=== PATIENT | female | born 1970 | race Caucasian/White ===

== ENCOUNTER 2018-10-16 08:34 | Outpatient (CLI) | payer MEDICARE | END 2018-10-16 23:59 | disposition home or self-care (01) | LOC: STAR 08:34 | PROVIDERS: ATTEND Orthopaedic Surgery | DX: Z01.818 Encounter for other preprocedural examination (principal); M19.012 Primary osteoarthritis, left shoulder | CPT/HCPCS: 36415; 80053 ==

== ENCOUNTER 2018-10-21 05:15 | Inpatient (IN) | payer MEDICARE ==
[~2018-10-21] VITALS: Ht 160 cm; Wt 104.5 kg
[~2018-10-21 05:15] MED LIST: ASPI-691 PO; ATOR10TA PO; DICL50TA2 PO; GABA-826 PO; IBUP200T64 PO; LOSA1TAB25 PO; OMEP20TA62 PO
[2018-10-21] MEDS ORDERED: LACTATED RINGERS 1,000 ML IV SCH (06:00)
[2018-10-21] MEDS ORDERED: MULT-658 PO (06:03)
[2018-10-21] MEDS ORDERED: MIDAZOLAM 1 MG/ML, 2ML ONE (06:12)
[2018-10-21] MEDS ORDERED: FENTANYL PF 250 MCG/5ML ONE (06:12)
[2018-10-21 06:18] VITALS: BP 165/104
[2018-10-21] MEDS ORDERED: BUPIVACAINE LIPOSOME/PF 10ML INFIL ONE ×2 (06:22→07:09)
[2018-10-21] MEDS ORDERED: GABAPENTIN 300 MG CAPSULE PO ONE (06:30)
[2018-10-21] MEDS ORDERED: BUPIVACAINE/PF 0.5% ONE (06:30)
[2018-10-21] MEDS ORDERED: ROPIvacaine/PF 0.5%, 30 ML ONE (06:30)
[2018-10-21] MEDS ORDERED: CLINDAMYCIN 150 MG/ML, 6ML ONE (06:30)
[2018-10-21] MEDS ORDERED: ACETAMINOPHEN 500 MG TABLET PO ONE (06:30)
[2018-10-21] MEDS ORDERED: ACETAMINOPHEN 500 MG TABLET ONE (06:33)
[2018-10-21] MEDS ORDERED: GABAPENTIN 300 MG CAPSULE ONE (06:34)
[2018-10-21] MEDS ORDERED: D5%-0.45% NACL 1,000 ML IV SCH (06:50)
[2018-10-21] MEDS ORDERED: DEXAMETHASONE 4 MG/ML, 1ML ONE (07:00)
[2018-10-21] MEDS ORDERED: ONDANSETRON 2MG/ML, 2ML IV PRN (07:00)
[2018-10-21] MEDS ORDERED: ROCURONIUM 10 MG/ML,10ML ONE (07:00)
[2018-10-21] MEDS ORDERED: morphine SULFATE 10 MG/ML, 1ML IV PRN (07:00)
[2018-10-21] MEDS: KETOROLAC 30 MG/1 ML IV SCH ×2 (07:00→15:34)
[2018-10-21] MEDS ORDERED: BISACODYL 10 MG SUPP PR PRN (07:00)
[2018-10-21] MEDS ORDERED: ACETAMINOPHEN 325 MG TABLET PO PRN (07:00)
[2018-10-21] MEDS ORDERED: MAGNESIUM HYDROXIDE 8%, 30ML UDC PO PRN (07:00)
[2018-10-21] MEDS ORDERED: SENNA/DOCUSATE TABLET PO PRN (07:00)
[2018-10-21] MEDS ORDERED: ASA/APAP/ CAFFEINE TABLET PO PRN (07:00)
[2018-10-21] MEDS ORDERED: SUCCINYLCHOLINE 20 MG/ML, 10ML ONE (07:00)
[2018-10-21] MEDS ORDERED: CEFAZOLIN 1,000 MG ONE (07:00)
[2018-10-21] MEDS ORDERED: ONDANSETRON 2MG/ML, 2ML ONE (07:00)
[2018-10-21] MEDS: OXYcodone/APAP 5/325MG TABLET PO SCH ×3 (07:00→15:00)
[2018-10-21] MEDS ORDERED: PROPOFOL 10 MG/ML, 20ML ONE (07:00)
[2018-10-21] MEDS ORDERED: PROMETHAZINE 25 MG/ML, 1ML IM PRN (07:00)
[2018-10-21] MEDS ORDERED: FENTANYL PF 100 MCG/2ML IV PRN (08:30)
[2018-10-21] MEDS ORDERED: HYDROmorphone 1 MG/ML, 1ML INJ IV PRN (08:30)
[2018-10-21] MEDS ORDERED: MEPERIDINE/PF 25MG/0.5ML IVPush PRN (08:30)
[2018-10-21] MEDS ORDERED: ALBUTEROL SULFATE 2.5 MG/3 ML NPPB PRN (08:30)
[2018-10-21] MEDS ORDERED: OXYcodone 5 MG/5 ML ORAL.SOL UDC PO PRN (08:30)
[2018-10-21] MEDS ORDERED: ONDANSETRON 2MG/ML, 2ML IVPush PRN (08:30)
[2018-10-21] MEDS ORDERED: PROMETHAZINE 25 MG/ML, 1ML IV PRN (08:30)
[2018-10-21] MEDS ORDERED: KETOROLAC 30 MG/1 ML IV PRN (08:30)
[2018-10-21] MEDS ORDERED: hydrALAzine 20 MG/ML, 1ML IV PRN (08:30)
[2018-10-21] MEDS ORDERED: LABETALOL 5MG/ML, 20ML IV PRN (08:30)
[2018-10-21] MEDS ORDERED: METOCLOPRAMIDE 5 MG/ML, 2ML IV PRN (08:30)
[2018-10-21] MEDS ORDERED: DOCUSATE 100 MG CAPSULE PO SCH (09:00)
[2018-10-21] MEDS ORDERED: HYDROCHLOROTHIAZIDE 12.5 MG CAPSULE PO SCH (09:00)
[2018-10-21] MEDS: GABAPENTIN 100 MG CAPSULE PO SCH ×2 (09:00→10:57)
[2018-10-21] MEDS ORDERED: LOSARTAN 50MG TABLET PO SCH (09:00)
[2018-10-21] MEDS ORDERED: OXYcodone 5 MG/5 ML ORAL.SOL UDC ONE ×2 (09:12→09:13)
[2018-10-21] MEDS ORDERED: LABETALOL 5 MG/ML SYR. (IV ONLY) IV PRN (10:00)
[2018-10-21 10:30] VITALS: BP 140/94
[2018-10-21] MEDS ORDERED: OMEPRAZOLE 20 MG CAPSULE.DR PO SCH (10:30)
[2018-10-21] MEDS ORDERED: CEFAZOLIN PMX 2GM/50ML 50 ML IVPB SCH (11:00)
[2018-10-21 13:56] VITALS: BP 122/87
[2018-10-21 17:50] VITALS: BP 144/68
[2018-10-21] MEDS ORDERED: ATORVASTATIN 10 MG TABLET PO SCH (21:00)
== END 2018-10-21 18:10 | disposition home or self-care (01) | DRG 483 ==
LOC: ORIP 05:15 → 4NOR 10:27
PROVIDERS: ADMIT Orthopaedic Surgery; ATTEND Orthopaedic Surgery
PROC: 3E0T3BZ Introduction of Anesthetic Agent into Peripheral Nerves and Plexi, Percutaneous Approach (ICD-10-PCS; 2018-10-21)
PROC: 0RRK00Z Replacement of Left Shoulder Joint with Reverse Ball and Socket Synthetic Substitute, Open Approach (ICD-10-PCS; principal; 2018-10-21 07:00)
DX: M19.012 Primary osteoarthritis, left shoulder (principal); Q89.8 Other specified congenital malformations; M75.20 Bicipital tendinitis, unspecified shoulder; K21.9 Gastro-esophageal reflux disease without esophagitis; M65.9 Synovitis and tenosynovitis, unspecified; Z90.710 Acquired absence of both cervix and uterus; Z90.49 Acquired absence of other specified parts of digestive tract
CPT/HCPCS: C1713; C1776; G0378; J0690; J1100; J1885; J2250; J2405; J2704; J2795; J3010; C1769; J0330; J7120

== ENCOUNTER → 2020-08-10 | Outpatient (CLI) | payer MEDICARE ==
[~2020-08-10] MED LIST changes: +MULT-658 PO
[2020-08-10 10:27] LABS: ALBUMIN 3.8 g/dL (3.4-5.0); ANION GAP 7 mmol/L (5-15); CALCIUM 10.5 mg/dL (8.5-10.1); CHLORIDE 103 mmol/L (98-107)
[2020-08-10 10:31] LABS: ALANINE AMINOTRANSFERASE 27 U/L (12-78); ALKALINE PHOSPHATASE 152 U/L (45-117); BILIRUBIN,TOTAL 0.6 mg/dL (0.2-1.0); TOTAL PROTEIN 8.5 g/dL (6.4-8.2)
== END | disposition home or self-care (01) ==
LOC: STAR 08:35
PROVIDERS: ATTEND Orthopaedic Surgery
DX: Z01.812 Encounter for preprocedural laboratory examination (principal); M19.011 Primary osteoarthritis, right shoulder; M25.511 Pain in right shoulder; Z20.822 Contact with and (suspected) exposure to COVID-19
CPT/HCPCS: 36415; 80053; 87081; U0003; U0005

== ENCOUNTER 2020-08-16 08:43 | Observation (INO) | payer MEDICARE ==
[~2020-08-16] VITALS: Ht 160 cm; Wt 106.0 kg
[~2020-08-16 08:43] MED LIST changes: +BUPIVACAINE LIPOSOME/PF 10ML INFIL ONE; +CLINDAMYCIN 150 MG/ML, 6ML ONE
[2020-08-16] MEDS ORDERED: CHLORHEXIDINE 15 ML UDC ONE (09:51)
[2020-08-16] MEDS ORDERED: CHLORHEXIDINE 15 ML UDC PO ONE (10:00)
[2020-08-16] MEDS ORDERED: LACTATED RINGERS 1,000 ML IV SCH (10:00)
[2020-08-16] MEDS ORDERED: FENTANYL PF 250 MCG/5ML ONE (10:06)
[2020-08-16] MEDS ORDERED: MIDAZOLAM 1 MG/ML, 2ML ONE (10:06)
[2020-08-16] MEDS ORDERED: hydrALAzine 20 MG/ML, 1ML ONE (10:18)
[2020-08-16] MEDS ORDERED: hydrALAzine 20 MG/ML, 1ML IV ONE (10:30)
[2020-08-16] MEDS ORDERED: ACETAMINOPHEN 325 MG TABLET PO PRN (12:30)
[2020-08-16] MEDS ORDERED: PROMETHAZINE 25 MG/ML, 1ML IVPush PRN (12:30)
[2020-08-16] MEDS ORDERED: ONDANSETRON 2MG/ML, 2ML IVPush PRN ×2 (12:30→19:30)
[2020-08-16] MEDS ORDERED: METHOCARBAMOL 1,000 MG in DEXTROSE 5% 100 ML IV PRN (12:30)
[2020-08-16] MEDS ORDERED: EPHEDRINE 50 MG/ML, 1ML IVPush PRN (12:30)
[2020-08-16] MEDS ORDERED: LORazepam 2 MG/ML, 1ML IVPush PRN (12:30)
[2020-08-16] MEDS ORDERED: hydrALAzine 20 MG/ML, 1ML IV PRN (12:30)
[2020-08-16] MEDS ORDERED: HYDROmorphone 1 MG/ML, 1ML INJ IVPush PRN (12:30)
[2020-08-16] MEDS ORDERED: LABETALOL 5MG/ML, 20ML IV PRN (12:30)
[2020-08-16] MEDS ORDERED: OXYcodone 5 MG/5 ML ORAL.SOL UDC PO PRN ×2 (12:30→19:30)
[2020-08-16] MEDS ORDERED: HALOPERIDOL 5 MG/ML IV PRN (12:30)
[2020-08-16] MEDS ORDERED: MEPERIDINE/PF 25MG/0.5ML IVPush PRN (12:30)
[2020-08-16] MEDS ORDERED: FENTANYL PF 100 MCG/2ML ONE (12:52)
[2020-08-16] MEDS ORDERED: ACETAMINOPHEN 650 MG/20.3 ML UDC ONE (12:53)
[2020-08-16] MEDS ORDERED: OXYcodone 5 MG/5 ML ORAL.SOL UDC ONE (12:53)
[2020-08-16] MEDS: FENTANYL PF 100 MCG/2ML IV PRN ×2 (13:04→13:35)
[2020-08-16] MEDS ORDERED: PROPOFOL 10 MG/ML, 20ML ONE (13:17)
[2020-08-16] MEDS ORDERED: SUCCINYLCHOLINE 20 MG/ML, 10ML ONE (13:17)
[2020-08-16] MEDS ORDERED: GLYCOPYRROLATE 0.2MG/1ML, 5ML ONE (13:17)
[2020-08-16] MEDS ORDERED: DEXAMETHASONE 4 MG/ML, 1ML ONE (13:17)
[2020-08-16] MEDS ORDERED: ROCURONIUM 10MG/ML,5ML ONE (13:17)
[2020-08-16] MEDS ORDERED: CEFAZOLIN 1,000 MG ONE (13:17)
[2020-08-16] MEDS ORDERED: ONDANSETRON 2MG/ML, 2ML ONE (13:17)
[2020-08-16] MEDS ORDERED: NEOSTIGMINE 1 MG/ML, 10ML ONE (13:17)
[2020-08-16 20:15] VITALS: BP 149/93
[2020-08-16] MEDS: GABAPENTIN 100 MG CAPSULE PO SCH (20:54)
[2020-08-16] MEDS ORDERED: ATORVASTATIN 20 MG TABLET PO SCH (21:00)
[2020-08-16] MEDS: DICLOFENAC 50 MG TABLET.DR PO SCH (21:11)
[2020-08-17 01:09] VITALS: BP 117/68
[2020-08-17 03:53] VITALS: BP 119/79
[2020-08-17] MEDS ORDERED: OMEPRAZOLE 20 MG CAPSULE.DR PO SCH (09:00)
[2020-08-17] MEDS ORDERED: TEMPLATE NON-FORMULARY MED. (Losartan/Hydrochlorothiazide** (Losartan-Hctz 100-12.5 Mg Tab HOMEMEDPO SCH (09:00)
[2020-08-17] MEDS: GABAPENTIN 100 MG CAPSULE PO SCH (09:11)
[2020-08-17] MEDS: DICLOFENAC 50 MG TABLET.DR PO SCH (09:11)
== END 2020-08-17 12:27 | disposition home or self-care (01) ==
LOC: OUT 08:43 → 4NE 20:23 → OUT 21:52 → 4NE 21:53 → INTOOBSV 21:53
PROVIDERS: ADMIT Orthopaedic Surgery; ATTEND Orthopaedic Surgery
DX: M19.011 Primary osteoarthritis, right shoulder (principal); M65.811 Other synovitis and tenosynovitis, right shoulder; K21.9 Gastro-esophageal reflux disease without esophagitis; I10 Essential (primary) hypertension; Q89.8 Other specified congenital malformations; Z79.899 Other long term (current) drug therapy; Z90.710 Acquired absence of both cervix and uterus
CPT/HCPCS: 23472; 29828; C1713; C1769; C1776; G0378; J0330; J0360; J0690; J1100; J2250; J2405; J2704; J2710; J2800; J3010; J7120; S0077